=== PATIENT | female | born 1955 | race Caucasian/White ===

== ENCOUNTER → 2018-10-15 | Outpatient (CLI) | payer MEDICARE, OTHER ==
--- NOTE | 2018-10-15 12:15 | PCVCIMAG ---
APPROVED REPORT Study performed: 10/15/2018 10:04:44 EXAM: Comprehensive 2D, Doppler, and color-flow Echocardiogram Patient Location: Echo lab Room #: 3Status: routine BSA: 1.52 HR: 56 bpmBP: 108/76 mmHg Rhythm: NSR Other Information Study Quality: Adequate Risk Factors: Cardiac Risk Factors: Hyperlipidemia, HTN Indications Murmur 2D Dimensions IVSd: 8.03 (7-11mm)LVOT Diam: 18.00 (18-24mm) LVDd: 33.76 mm PWd: 9.15 (7-11mm)Ascending Ao: 28.86 (22-36mm) LVDs: 20.55 (25-40mm) Left Atrium: 21.86 (27-40mm) Aortic Root: 26.63 mm LV Single Plane 4CH: 58.54 % LV Single Plane 2CH: 65.16 % Biplane EF: 65.9 % Volumes Left Atrial Volume (Systole) Single Plane 4CH: 27.59 mLSingle Plane 2CH: 22.06 mL LA ESV Index: 18.00 mL/m2 Aortic Valve AoV Peak Aaron.: 1.22 m/s AO Peak Gr.: 5.97 mmHgLVOT Max P.99 mmHg LVOT Max V: 0.71 m/s GITA Vmax: 1.51 cm2 Mitral Valve E/A Ratio: 1.1 MV Decel. Time: 248.88 ms MV E Max Aaron.: 0.65 m/s MV A Aaron.: 0.60 m/s MV PHT: 72.17 ms IVRT: 51.90 ms TDI E/Lateral E': 8.13E/Medial E': 9.29 Medial E' Aaron.: 0.07 m/s Lateral E' Aaron.: 0.08 m/s Pulmonary Valve PV Peak Aaron.: 0.69 m/sPV Peak Gr.: 1.91 mmHg Pulmonary Vein P Vein S: 0.52 m/sP Vein A: 0.33 m/s P Vein D: 0.50 m/sP Vein A Dur.: 90.0 msec P Vein S/D Ratio: 1.04 Tricuspid Valve TR Peak Aaron.: 2.17 m/sRAP Estimate: 7.00 mmHg TR Peak Gr.: 18.75 mmHg PA Pressure: 26.00 mmHg Left Ventricle The left ventricle is normal size. There is normal LV segmental wall motion. There is normal left ventricular wall thickness. Left ventricular systolic function is normal. The left ventricular ejection fraction is within the normal range. LVEF is 60-65%. The left ventricular diastolic function is normal. Right Ventricle The right ventricle is normal size. The right ventricular systolic function is normal. Atria The left atrium size is normal. The right atrium size is normal. Aortic Valve The aortic valve is normal in structure. No aortic regurgitation is present. There is no aortic valvular stenosis. Mitral Valve The mitral valve is normal in structure. Mild mitral regurgitation. No evidence of mitral valve stenosis. Tricuspid Valve The tricuspid valve is normal in structure. Mild tricuspid regurgitation. Pulmonary artery pressure is 26 mmHg. Pulmonic Valve The pulmonary valve is normal in structure. Trace pulmonic regurgitation. Great Vessels The aortic root is normal in size. IVC is normal in size and collapses >50% with inspiration. Pericardium Trace pericardial effusion. <Conclusion> The left ventricle is normal size. LVEF is 60-65%. The aortic valve is normal in structure. The mitral valve is normal in structure. Mild mitral regurgitation. The tricuspid valve is normal in structure. Mild tricuspid regurgitation. Pulmonary artery pressure is 26 mmHg. The pulmonary valve is normal in structure. Trace pulmonic regurgitation. The aortic root is normal in size. Trace pericardial effusion.
== END | disposition home or self-care (01) ==
LOC: EDSEX → PCVCIMAG 09:55
PROVIDERS: ATTEND Family Medicine
DX: I08.1 Rheumatic disorders of both mitral and tricuspid valves (principal); R01.1 Cardiac murmur, unspecified; I10 Essential (primary) hypertension; E78.5 Hyperlipidemia, unspecified; F41.9 Anxiety disorder, unspecified; F17.200 Nicotine dependence, unspecified, uncomplicated
CPT/HCPCS: 36415; 80061; 93005; 93306; G0463

== ENCOUNTER → 2019-09-09 | Outpatient (CLI) | payer MEDICARE, OTHER ==
--- NOTE | 2019-09-09 13:12 | PCVCIMAG ---
APPROVED REPORT Study performed: 09/09/2019 09:59:28 EXAM: Comprehensive 2D, Doppler, and color-flow Echocardiogram Patient Location: Echo lab Status: routine BSA: 1.61 HR: 70 bpmBP: 160/90 mmHg Rhythm: NSR Other Information Study Quality: Technically Difficult Risk Factors: Cardiac Risk Factors: HTN, Hyperlipidemia, Smoking Indications Murmur Murmur 2D Dimensions IVSd: 11.22 (7-11mm)LVOT Diam: 20.38 (18-24mm) LVDd: 30.94 mm LVPWs: 22.90 mm PWd: 14.21 (7-11mm)Ascending Ao: 32.72 (22-36mm) LVDs: 22.89 (25-40mm) Aortic Root: 30.95 mm LV Single Plane 4CH: 62.36 % LV Single Plane 2CH: 60.08 % Biplane EF: 61.7 % Volumes Left Atrial Volume (Systole) Single Plane 4CH: 22.16 mLSingle Plane 2CH: 20.55 mL LA ESV Index: 14.00 mL/m2 Aortic Valve AoV Peak Aaron.: 1.25 m/s AO Peak Gr.: 6.20 mmHgLVOT Max P.34 mmHg LVOT Max V: 0.76 m/s GITA Vmax: 2.00 cm2 Mitral Valve E/A Ratio: 35.0 MV Decel. Time: 195.98 ms MV E Max Aaron.: 0.70 m/s MV A Aaron.: 0.02 m/s IVRT: 145.33 ms TDI E/Lateral E': 11.67E/Medial E': 14.00 Medial E' Aaron.: 0.05 m/s Lateral E' Aaron.: 0.06 m/s Pulmonary Vein P Vein S: 0.44 m/sP Vein A: 0.27 m/s P Vein D: 0.29 m/sP Vein A Dur.: 114.2 msec P Vein S/D Ratio: 1.52 Left Ventricle The left ventricle is normal size. There is normal LV segmental wall motion. There is normal left ventricular wall thickness. Left ventricular systolic function is normal. The left ventricular ejection fraction is within the normal range. LVEF is >55%. Right Ventricle The right ventricle is normal size. The right ventricular systolic function is normal. Atria The left atrium size is normal. The right atrium size is normal. Aortic Valve The aortic valve is normal in structure. No aortic regurgitation is present. There is no aortic valvular stenosis. Mitral Valve The mitral valve is normal in structure. There is no mitral valve regurgitation noted. No evidence of mitral valve stenosis. Tricuspid Valve The tricuspid valve is normal in structure. There is no tricuspid valve regurgitation noted. Pulmonic Valve The pulmonary valve is normal in structure. There is no pulmonic valvular regurgitation. Great Vessels The aortic root is normal in size. IVC is normal in size and collapses >50% with inspiration. Pericardium There is no pericardial effusion. <Conclusion> The left ventricle is normal size. LVEF is >55%. The aortic valve is normal in structure. The mitral valve is normal in structure. The tricuspid valve is normal in structure. There is no pericardial effusion.
== END | disposition home or self-care (01) ==
LOC: PCVCIMAG 09:48
PROVIDERS: ATTEND Internal Medicine
DX: I10 Essential (primary) hypertension (principal); E78.5 Hyperlipidemia, unspecified; F17.210 Nicotine dependence, cigarettes, uncomplicated; Z78.0 Asymptomatic menopausal state; Z88.8 Allergy status to other drugs, medicaments and biological substances; Z79.899 Other long term (current) drug therapy
CPT/HCPCS: 36415; 80061; 93306; G0463